=== PATIENT | male | born 1965 | race Caucasian/White ===

== ENCOUNTER 2022-02-05 08:16 | Emergency (ER) | payer OTHER, SELFPAY ==
[2022-02-05 08:24] VITALS: BP 143/86; PULSE 52; RESP 16; TEMP 36.6; O2SAT 99
--- NOTE | 2022-02-05 08:45 | ED.GENADULT ---
HPI - General Adult General Chief complaint: Ear Stated complaint: Ear Pain/Toothache Time Seen by Provider: 02/05/22 08:35 Source: patient and RN notes reviewed Mode of arrival: ambulatory Limitations: no limitations History of Present Illness HPI narrative: 56-year-old male presented for complaint of left ear/dental pain for about 6 days. Endorses water in the ear sensation and stuffy nose on the left side. He states the pain is sharp, stabbing, and intermittent which resolves on its own. Pain shoots from the left ear into the upper gumline. Denies associated dizziness at times. Denies ringing, cough, shortness of breath, nausea, vomiting, fever or chills. Taking Tylenol, swimmer's ear drops, and Robitussin for symptoms. States he had a TM rebuilt as a child and no complications since. He currently smokes 1/2 to 1 pack/day. He is not vaccinated for Covid or flu. He does not follow with a PCP or dentist. Denies significant medical history. Related Data Allergies Allergy/AdvReac Type Severity Reaction Status Date / Time Penicillins Allergy Unknown Dyspnea / Verified 02/05/22 08:35 SOB Review of Systems Review of Systems: CONSTITUTIONAL: Denies body aches, fever, chills ENT: Reports upper left dental pain/otalgia, sinus congestion CARDIOVASCULAR: Denies chest pain, palpitations RESPIRATORY: Denies change in cough or dyspnea. SKIN: Denies rash, itching, or wounds. MUSCULOSKELETAL: Denies myalgia. NEUROLOGIC: Denies headache, numbness, tingling, or weakness. [facility] Past Medical History Medical History (Updated 02/05/22 @ 08:54 by Bettye Barrientos APRN) Asthma Surgical History Surgical History History of cholecystectomy Family History Family History Grandparent Diabetes mellitus Family history of seizure disorder Mother Diabetes mellitus Hypertension Carcinoma of colon Father Family history of cardiovascular disease Family history of congestive heart failure Social History Social History (Updated 12/23/19 @ 14:12 by Zita Shaw [facility]) Smoking packs per day: 0.5 Smoking cigarettes per day: 10.0 Years smoked: 20 Smoking pack-years: 10.00 Smoking status: Heavy tobacco smoker Second hand tobacco smoke exposure: Yes Alcohol intake: never Substance use: never Comments At time of signature, I have reviewed and agree with nursing past medical, surgical, social and family history unless otherwise noted. Please see nursing chart for further information. There is no relevant family history pertinent to the presenting complaint Exam Narrative: GENERAL: Well-appearing, Appears older than stated age,in no acute distress. HEAD: Normocephalic, atraumatic. EYES: EOMI. No redness or drainage. Conjunctivae normal. ENT: Mucous membranes pink and moist. TMs normal bilaterall with bilat erythematous canals. Throat normal. Uvula midline. Poor dentition throughout, nontender to left upper gumline no abscess formation NECK: Normal AROM. Supple. No lymphadenopathy. CHEST: No respiratory distress. Clear to auscultation. HEART: Regular rate and rhythm. No murmur appreciated. ABDOMEN: Soft, nontender, nondistended, normal active bowel sounds. SKIN: Warm, dry, no rash. Normal skin turgor. NEURO: No focal deficits. Alert and oriented x3. Gait steady. Course Course Emergency Course: Patient is aware of diagnosis, understands and agrees to treatment plan. Anticipatory guidance given. Patient agrees to follow-up as directed and is aware of reasons to seek care at the emergency department. Portions of this record may have been created with voice recognition software Level of Care: Express Care Visit Vital Signs Vital signs: Vital Signs Temperature 98 F 02/05/22 08:24 Pulse Rate 52 L 02/05/22 08:24 Respiratory Rate 16 02/05/22 08:24 Blood Pressure 143/86 H 03
== END 2022-02-05 09:04 | disposition home or self-care (01) ==
PROVIDERS: Emergency Provider Nurse Practitioner Family
DX: H92.02 Otalgia, left ear (principal); K08.89 Other specified disorders of teeth and supporting structures; F17.210 Nicotine dependence, cigarettes, uncomplicated; J45.909 Unspecified asthma, uncomplicated
CPT/HCPCS: 99213; G0463

== ENCOUNTER 2022-10-31 10:31 | Emergency (ER) | payer OTHER, SELFPAY ==
[2022-10-31] VITALS (31 sets, daily range): BP systolic 123–144; BP diastolic 77–97; PULSE 45–60; RESP 13–20; TEMP 36.7; O2SAT 96–100
--- NOTE | ~2022-10-31 | XR_ITS ---
EXAMINATION: XR chest 1V portable DATE: 10/31/2022 11:56 INDICATION: Left chest pain. TECHNIQUE: A single frontal view of the chest was obtained. COMPARISON: None. FINDINGS: The chest demonstrates clear lungs without pneumonia, pleural effusion, or pneumothorax. Th e heart size is normal. IMPRESSION: 1. No acute cardiopulmonary disease. Reviewed, dictated and finalized at location A. GENERATION MARKETING MANAGER
--- NOTE | ~2022-10-31 | CT_ITS ---
EXAMINATION: CT brain wo con DATE: 10/31/2022 11:56 INDICATION: Left upper extremity paresis for 3 days TECHNIQUE: Computed tomography (CT) of the head was performed without intravenous contrast. The mA wa s adjusted according to patient size. Iterative reconstruction technique was employed. Exam dose: 60 5.33 mGy-cm total exam DLP. COMPARISON: None FINDINGS: Mild chronic cerebellar calcifications. Moderately prominent lateral ventricles. No intracranial mass lesion or hemorrhage or cerebrovascular accident, midline shift or mass effect is detected. No subdural or epidural hematoma. Opacified posterior left ethmoid air cell. The right frontal sinus is undeveloped. Included paranasal sinuses are otherwise unremarkable. Left mastoid air cells are opacified. Right mastoid air cells ar e unremarkable. No fracture or bone destruction of the cranial vault. IMPRESSION: No acute intracranial finding Mild benign cerebellar calcification Moderate prominence of the lateral ventricles Opacified posterior left ethmoid air cell and mild left mastoid effusion Reviewed, dictated and finalized at Location A. Reviewed, dictated and finalized at location B. LFISH PROCESSING LABORER
--- NOTE | 2022-10-31 10:55 | ECG_ITS ---
Measurements Intervals [place] Rate: 53 P: 50 [place]: 150 QRS: 59 QRSD: 95 T: -13 QT: 384 QTc: 361 Interpretive Statements SINUS BRADYCARDIA LEFT VENTRICULAR HYPERTROPHY AND ST-T CHANGE BORDERLINE ECG NO PREVIOUS ECG AVAILABLE FOR COMPARISON Electronically Signed On 11-01-2022 13:57:32 FORM SETTER/DRIVER by Danilo Valderrama M.D.
[2022-10-31] MEDS: SODIUM CHLORIDE 0.9% IV 500 ML 999 ML IV CONT (11:41)
--- NOTE | 2022-10-31 11:51 | PC.NURSE ---
PT REPORTS HE AWOKE WITH TIGHTNESS TO LEFT CHEST THIS AM THAT RESOLVED WITH A BABY ASPIRIN. PT REPORTS IT DOES REMAIN INTERMITTENT, HOWEVER NONE AT PRESENT. PT HAS RETURNED FROM RADIOLOGY AT THIS TIME. WILL CONTINUE TO MONITOR. PT IS NOTED BRADYCARDIC, ERP IS AWARE.
[2022-10-31 12:06] LABS: Basophils Absolute Auto 0.05 K/mm3 (0.00-0.10); Basophils Percent Auto 0.8 % (0.0-1.0); Eosinophils Absolute Auto 0.38 K/mm3 (0.02-0.50); Eosinophils Percent Auto 6.3 % (1.0-6.0); Hematocrit 42.2 % (40.0-54.0); Hemoglobin 14.3 g/dL (14.0-18.0); Immature Granulocyte Absolute 0.02 K/mm3 (0.00-0.00); Immature Granulocyte Percent A 0.3 % (0.0-0.0); Lymphocytes Absolute Auto 1.64 K/mm3 (1.10-4.50); Lymphocytes Percent Auto 27.3 % (18.0-42.0); Mean Corpuscular HGB Conc 33.9 g/dL (32.0-36.0); Mean Corpuscular Hemoglobin 32.9 pg (27.0-31.0); Mean Corpuscular Volume 97.2 fL (78.0-102.0); Mean Platelet Volume 10.7 fl (8.7-11.0); Monocytes Absolute Auto 0.52 K/mm3 (0.10-0.90); Monocytes Percent Auto 8.7 % (2.0-11.0); Neutrophils Absolute Auto 3.4 K/mm3 (1.7-7.2); Neutrophils Percent Auto 56.6 % (50.0-70.0); Platelet Count Result 145 K/mm3 (150-420); Red Blood Count 4.34 M/mm3 (4.70-6.10); Red Cell Distribution Width 11.8 % (11.6-14.4)
[2022-10-31 12:25] LABS: Lactic Acid Reflex 0.8 mmol/L (0.4-2.0)
[2022-10-31 12:33] LABS: Alanine Aminotransferase 25 U/L (16-63); Albumin Level 3.2 g/dL (3.4-5.0); Alkaline Phosphatase 57 U/L (46-116); Anion Gap 9 mmol/L (8-16); Aspartate Amino Transferase 13 U/L (15-37); Bilirubin,Total 0.3 mg/dL (0.00-1.00); Blood Urea Nitrogen 14 mg/dL (7-18); Carbon Dioxide 24 mmol/L (21-32); Chloride 107 mmol/L (98-108); Estimated CRCL calculation 75 ml/min; Estimated Glomerular Filt Rate > 60; Glucose 101 mg/dL (70-99); Osmolality Calculated 290 mOsm/kg (285-295); Potassium 4.4 mmol/L (3.5-5.1); Sodium 140 mmol/L (136-145); Total Protein 6.4 g/dL (6.4-8.2)
[2022-10-31 12:34] LABS: Ethanol < 3 mg/dL (0-6)
--- NOTE | 2022-10-31 12:46 | PC.NURSE ---
pt is sitting on stretcher playing a game on his cell phone. nad noted. pt hr drops into the 47 range, erp is aware. no orders at this time. pt denies any pain at present. reports tingling to left hand. will continue to monitor.
[2022-10-31 13:02] LABS: Amphetamine Screen Urine Negative (Negative); Barbiturate Screen Urine Negative (Negative); Benzodiazepines Screen Urine Negative (Negative); Cannabinoid Screen Urine Negative (Negative); Cocaine Screen Urine Negative (Negative); Methadone Screen Urine Negative (Negative); Opiate Screen Urine Negative (Negative); Phencyclidine Screen Urine Negative (Negative)
--- NOTE | 2022-10-31 14:43 | ED.GENADULT ---
HPI - General Adult General Chief complaint: Extremity Injury, Upper Stated complaint: numbness arm dizzy Time Seen by Provider: 10/31/22 10:35 Source: patient and RN notes reviewed Mode of arrival: other (also left chest pain) Limitations: no limitations History of Present Illness complaint: left chest pain Onset (ago): day(s) (1) Location: chest Radiation: non-radiation Severity: mild Severity scale (1-10): 3 Quality: aching and dull Pain Consistency: constant Relieving factors: none Exacerbating factors: none Associated symptoms: chest pain Treatments prior to arrival: none Related Data Home Medications Medication Instructions Recorded Confirmed No Home Medications 10/31/22 10/31/22 Allergies Allergy/AdvReac Type Severity Reaction Status Date / Time Penicillins Allergy Unknown Dyspnea / Verified 10/31/22 11:12 SOB Review of Systems Review of Systems: All systems reviewed & are unremarkable except as noted in HPI and below Constitutional: Constitutional: Reports no additional constitutional complaints Eyes: Eyes: Reports no additional eye complaints ENT: Reports system reviewed and no additional complaints, except as documented Cardiovascular: Cardiovascular: Reports no additional cardiovascular complaints Respiratory: Respiratory: Reports no additional respiratory complaints Gastrointestinal: Gastrointestinal: Reports no additional gastrointestinal complaints Musculoskeletal: Musculoskeletal: Reports no additional musculoskeletal complaints Integumentary/Breasts: Skin/Breast: Reports system reviewed and no additional complaints, except as docu Neurologic: Reports system reviewed and no additional complaints, except as documented Psychiatric: Psychiatric: Reports no additional psychiatric complaints Endocrine: Endocrine: Reports no additional endocrine complaints Hematologic/Lymphatic: Hematologic/Lymphatic: Reports no additional hematologic/lymphatic complaints Allergic/Immunologic: Allergic/Immunologic: Reports no additional allergic/immunologic complaints [facility] Past Medical History Medical History Asthma Atypical chest pain Surgical History Surgical History History of cholecystectomy Family History Family History Grandparent Diabetes mellitus Family history of seizure disorder Mother Diabetes mellitus Hypertension Carcinoma of colon Father Family history of cardiovascular disease Family history of congestive heart failure Social History Social History Smoking packs per day: 0.5 Smoking cigarettes per day: 10.0 Years smoked: 20 Smoking pack-years: 10.00 Smoking status: Heavy tobacco smoker Second hand tobacco smoke exposure: Yes Alcohol intake: never Substance use: never Exam Const: General: no acute distress and well nourished Nutritional Appearance: well nourished Orientation/consciousness: patient oriented x3 Limitations: no limitations HENMT: Head: normal to inspection Ears: external ears normal, TM's normal bilaterally and EAC's normal Face/Nose/Sinus: Normal external nose present, Normal nares present, normal facial exam and sinuses nontender Face and sinus: normal facial exam and sinuses nontender Mouth: Yes Normal oral and palatal mucosa present and Yes moist mucous membranes Teeth and gingiva: dentition normal Throat: posterior oropharynx normal Eyes: Conjunctivae: conjunctivae normal Pupils: Equal, round and reactive pupils present EOM: EOMs intact bilaterally Neck: Neck: normal visual inspection, no lymphadenopathy and no meningeal signs Chest: Chest palpation & inspection: normal inspection of the chest Resp: Effort & Inspection: normal respiratory effort Auscultation: clear to auscultation bilater
== END 2022-10-31 15:10 | disposition home or self-care (01) ==
PROVIDERS: Emergency Provider Emergency Medicine
DX: R07.9 Chest pain, unspecified (principal); F17.200 Nicotine dependence, unspecified, uncomplicated
CPT/HCPCS: 36415; 70450; 71045; 80053; 80307; 83605; 84443; 84484; 85025; 93005; 96360; 99284; J7040

== ENCOUNTER 2025-01-25 19:44 | Emergency (ER) | payer OTHER, SELFPAY ==
--- NOTE | ~2025-01-25 | XR_ITS ---
EXAM: XR_CERV2-3V_CR DATE: 01/25/2025 20:13 HISTORY: neck pain . COMPARISON: None available. FINDINGS: Craniocervical association and atlantoaxial joint are aligned. Mild degenerative change at the atlantodental interval. No prevertebral soft tissue swelling. 2 mm anterolistheses at C3-4 and C 4-5. Reversed lordosis centered at C4-5 Vertebral body heights are maintained. Mild disc space narrow ing and marginal osteophytosis at C4-5 through C6-7. Mild multilevel facet hypertrophy and sclerosis. IMPRESSION: Grade 1 anterolistheses at C3-4 and C4-5, presumably on a degenerative basis. Mild degene rative disc disease spanning C4-5 through C6-7. Mild multilevel cervical facet arthropathy Reviewed, dictated and finalized at location K. AL WEAR RENTAL CLERK IMPRESSION: Grade 1 anterolistheses at C3-4 and C4-5, presumably on a degenerat marisol basis. Mild degenerative disc disease spanning C4-5 through C6-7. Mild mult ilevel cervical facet arthropathy
--- NOTE | ~2025-01-25 | XR_ITS ---
EXAM: XR shoulder LT min 2V DATE: 01/25/2025 20:13 HISTORY: shoulder pain . COMPARISON: None available. FINDINGS: Normal mineralization. No fracture or dislocation. No lytic or blastic lesion. Mild osteoa rthritis at the AC joint and glenohumeral joint. Subacromial narrowing as can be seen with rotator cu ff pathology. No erosion or periosteal change. Soft tissues within normal limits. IMPRESSION: No acute osseous finding in the right shoulder. Reviewed, dictated and finalized at location K. LTY WORKER
[2025-01-25 19:48] VITALS: BP 121/91; PULSE 66; RESP 18; TEMP 35.9; O2SAT 100
--- NOTE | 2025-01-25 19:51 | ED.UPPEXIN ---
HPI - Extremity Injury (Upper) General Chief Complaint: Extremity Injury, Upper Stated Complaint: shoulder pain Time Seen by Provider: 01/25/25 19:50 Source: patient Mode of arrival: ambulatory Limitations: no limitations History of Present Illness HPI narrative: 9-year-old male presents to the ED a 3 day history of --, left suprascapular and left paraspinal muscular pain. This is made worse by movement of his neck the shoulder. No history of trauma Patient is right-handed he stacks [employer] complaint: injury to: left Onset (ago): day(s) ( 3 days) Other Extremity Injury: Left: shoulder Other injuries: none Handedness: right Severity: severe Relieving factors: immobilization Exacerbating factors: movement of extremity Associated symptoms: denies other symptoms Related Data Home Medications ?Medication ?Instructions ?Recorded ?Confirmed ?Last Taken ?Type aspirin 81 mg tablet 81 mg PO DAILY 01/25/25 01/25/25 Unknown History Allergies Allergy/AdvReac Type Severity Reaction Status Date / Time Penicillins Allergy Unknown Dyspnea / Verified 01/25/25 19:51 SOB Review of Systems Review of Systems: All systems reviewed & are unremarkable except as noted in HPI and below PMFSH Past Medical History Medical History Atypical chest pain Asthma Surgical History Surgical History H/O cardiac catheterization 2014 - [place], [place] History of cholecystectomy Family History Family History Grandparent Diabetes mellitus Family history of seizure disorder Mother , 2010 - colon cancer Diabetes mellitus Hypertension Carcinoma of colon Father , 1996 - passed from Leukemia Family history of cardiovascular disease Family history of congestive heart failure Seizure disorder Leukemia Sibling Family history of seizure disorder Social History Social History Smoking packs per day: 1 Smoking cigarettes per day: 20.0 Years smoked: 32 Smoking pack-years: 32.00 Smoking status: Heavy tobacco smoker Tobacco type: cigarettes Second hand tobacco smoke exposure: Yes Alcohol intake: current Alcohol use details: 2 beers per week Substance use: never Exam Narrative: blood pressure is 121/91. Const: General: healthy appearing Orientation/consciousness: patient oriented x3 Limitations: no limitations HENMT: Head: normal to inspection Ears: external ears normal Face/Nose/Sinus: Normal external nose present Face and sinus: normal facial exam Mouth: Yes Normal oral and palatal mucosa present Throat: posterior oropharynx normal Eyes: Conjunctivae: conjunctivae normal Pupils: Equal, round and reactive pupils present EOM: EOMs intact bilaterally Direct Ophthalmoscopy: no photophobia Neck: Neck: normal visual inspection Other: No spinal tenderness noted. Trapezius tenderness noted. Chest: Chest palpation & inspection: normal inspection of the chest Resp: Effort & Inspection: normal respiratory effort Auscultation: clear to auscultation bilaterally Cardio: Rate: regular rate Rhythm: regular rhythm GI: GI Palp: Yes Soft to palpation Auscultation: normal bowel sounds Other: No tenderness/ rigidity /rebound. : General: Yes no CVA tenderness Back/Spine/Pelvis: Back: no CVA tenderness Other: Tenderness over the left trapezius extending from the left side of the neck to the suprascapular and down in the paraspinal region. Skin: General skin exam: normal color Rashes: no rashes Wounds: no wounds Neuro: General: patient oriented x3, moves all extremities, no meningeal signs, no focal motor deficits and CN's II-XI intact bilaterally Cranial nerves: Yes Nystagmus not present Speech: normal speech Gait exam (Neuro): Normal gait present Extrem: General: normal to inspection and no clubbing, cyanosis or edema Other: Left shoulder-- no tenderness noted. Normal range of motion. Psych: Mental Status: mental status grossly normal Affect: normal affect Attitude: cooperative Course Course Emergency Course: Trapezius myalgia-- x-ray of the C-spine revealed no acute fracture / dislocation. It revealed anterolisthesis of 3/4, C4/5, degenerative disc disease from C4/5 to C6/C7 with facet arthropathy did x-ray of the shoulder did not show any acute findings. Vital Signs Vital signs: Vital Signs Temperature 35.9 C L 01/25/25 19:48 Pulse Rate 66 01/25/25 19:48 Respiratory Rate 18 01/25/25 19:48 Blood Pressure 121/91 H 01/25/25 19:48 Pulse Oximetry 100 01/25/25 19:48 Oxygen Delivery Room Air 01/25/25 19:48 Temperature 35.9 C L 01/25/25 19:48 Pulse Rate 66 01/25/25 19:48 Respiratory Rate 18 01/25/25 19:48 Blood Pressure 121/91 H 01/25/25 19:48 Pulse Oximetry 100 01/25/25 19:48 Oxygen Delivery Room Air 01/25/25 19:48 MDM - Extremity Injury (Upper) MDM Narrative Medical decision making narrative: Trapezius myalgia degenerative arthritis of the cervical spine Differential Diagnosis Differential diagnosis: Likely dislocation of shoulder and fracture of humerus Lab Data Attestation: I reviewed the patient's lab results. Discharge Plan Discharge Clinical Impression: Spasm of left trapezius muscle Degenerative arthritis of cervical spine Qualifiers: Spinal osteoarthritis complication: unspecified spinal osteoarthritis Qualified Code(s): M47.812 - Spondylosis without myelopathy or radiculopathy, cervical region Patient Disposition: Home, Self-Care Condition: Stable Instructions: Antibiotic Form, Musculoskeletal Pain (ED) Patient Language: Micronesian Prescriptions: New diclofenac sodium 50 mg tablet,delayed release (DR/EC) 50 mg PO Q12H PRN (Reason: pain) Qty: 20 0RF No Action aspirin 81 mg tablet 81 mg PO DAILY omeprazole 20 mg capsule,delayed release(DR/EC) 20 mg PO DAILY 30 Days Qty: 30 1RF fluticasone propionate [Allergy Relief (fluticasone)] 50 mcg/actuation spray,suspension 1 spray intranasal DAILY PRN (Reason: nasal congestion) Qty: 11.1 2RF Rx Instructions: administer into each nostril Follow-up/Referrals: UNKNOWN,DOCTOR [Non-Staff] - Time of Disposition: 20:30
[2025-01-25 21:25] VITALS: BP 129/84; PULSE 60; RESP 16; O2SAT 97
== END 2025-01-25 21:55 | disposition home or self-care (01) ==
PROVIDERS: Emergency Provider Internal Medicine Critical Care Medicine; PCP Nurse Practitioner Family
DX: M62.830 Muscle spasm of back (principal); M47.812 Spondylosis without myelopathy or radiculopathy, cervical region; F17.210 Nicotine dependence, cigarettes, uncomplicated; Z79.82 Long term (current) use of aspirin
CPT/HCPCS: 72040; 73030; 99284